=== PATIENT | female | born 1995 | race Caucasian/White ===

== ENCOUNTER 2017-01-31 12:37 | Emergency (ER) | payer BC ==
[~2017-01-31] VITALS: Ht 162.6 cm; Wt 44.5 kg
[2017-01-31 15:28] LABS: BASO % 0.5 % (0.0-1.0); EOS # 0.1 K/mm3 (0.0-0.50); EOS % 1.8 % (0.0-3.0); LARGE UNSTAINED CELL # 0.1 K/mm3 (0.0-0.4); LARGE UNSTAINED CELL % 2.8 % (0.0-4.0); LYMPH # 1.5 K/mm3 (1.5-6.5); LYMPH % 29.5 % (24.0-44.0); MEAN CORPUSCULAR HEMOGLOBIN 30.4 pg (27.0-33.0); MEAN CORPUSCULAR HGB CONC 34.4 g/dl (32.0-36.5); MEAN CORPUSCULAR VOLUME 88.4 fl (80.0-96.0); MONO # 0.2 K/mm3 (0.0-0.8); MONO % 4.6 % (0.0-5.0); NEUTROPHILS # 3.2 K/mm3 (1.8-7.7); NEUTROPHILS % 60.7 % (36.0-66.0); PLATELET COUNT, AUTOMATED 348 k/mm3 (150-450); RED CELL DISTRIBUTION WIDTH 11.8 % (11.5-14.5); WHITE BLOOD COUNT 5.2 K/mm3 (4.0-10.0)
[2017-01-31 16:00] LABS: CONTROL LINE HCG INT CTR LINE PRESENT
[2017-01-31 16:04] LABS: ALBUMIN 4.5 GM/DL (3.2-5.2); ALBUMIN/GLOBULIN RATIO 1.05 (1.00-1.93); ALKALINE PHOSPHATASE 108 U/L (45-117); ALT/SGPT 16 U/L (12-78); ANION GAP 7 MEQ/L (8-16); AST/SGOT 22 U/L (15-37); BILIRUBIN,TOTAL 0.4 MG/DL (0.2-1.0); BLOOD UREA NITROGEN 11 MG/DL (7-18); CARBON DIOXIDE LEVEL 30 MEQ/L (21-32); CHLORIDE LEVEL 103 MEQ/L (98-107); GLUCOSE, FASTING 81 MG/DL (70-105); SODIUM LEVEL 140 MEQ/L (136-145); TOTAL PROTEIN 8.8 GM/DL (6.4-8.2)
[2017-01-31] MEDS ORDERED: ISOVUE-370 76% 100ML VIAL (Q9967) As Ordered ONE (16:24)
[2017-01-31] MEDS ORDERED: CIPR500T89 PO (18:13)
[2017-01-31] MEDS ORDERED: FLUC150T PO (18:14)
[2017-01-31 18:20] VITALS: BP 122/77
[2017-01-31] MEDS ORDERED: CIPROFLOXACIN 500 MG TAB PO ONE (18:30)
--- NOTE | 2017-02-01 09:55 | REP ---
REASON FOR EXAM: Abdominal pain. Contrast: 100 mL of Isovue 370. PRIOR EXAMS: None. The lung bases are clear. The liver, gallbladder, spleen, pancreas, adrenal glands, and kidneys are within normal limits. The abdominal aorta and para-aorta regions are within normal limits. There is no free fluid or free air seen in the abdomen. The bowel loops and their mesenteries are within normal limits. The appendix is well visualized and is unremarkable in appearance. CT PELVIS: There is no mass or adenopathy. There is a trace amount of free fluid, probably physiologic. The bowel loops and their mesenteries are within normal limits. There is a moderate amount of contents in the sigmoid colon and rectal region. Bone window technique throughout the exam shows the osseous structures to be within normal limits. IMPRESSION: No acute intra-abdominal or intrapelvic disease. Signed by Kingston Lala DO 02/01/2017 10:28 A
== END 2017-01-31 18:34 | disposition home or self-care (01) ==
LOC: M ED 14:58
DX: N30.90 Cystitis, unspecified without hematuria (principal)
CPT/HCPCS: 36415; 74177; 80053; 81001; 84703; 85025; 99283; Q9967

== ENCOUNTER → 2017-01-31 | Outpatient (REF) | payer BC, OTHER ==
[~2017-01-31] MED LIST: CIPR500T89 PO; FLUC150T PO
== END ==
LOC: M LAB REF 16:28
PROVIDERS: ATTEND Pediatrics
DX: R10.30 Lower abdominal pain, unspecified (principal)

== ENCOUNTER 2017-12-26 15:50 | Emergency (ER) | payer OTHER, BC ==
[2017-12-26] MEDS: ACETAMINOPHEN TAB 650MG DOSE (2X325MG) PO ×2 (18:08)
== END 2017-12-26 20:38 | disposition home or self-care (01) ==
LOC: M ED 15:50
DX: S13.9XXA Sprain of joints and ligaments of unspecified parts of neck, initial encounter (principal); S06.0X0A Concussion without loss of consciousness, initial encounter; S80.02XA Contusion of left knee, initial encounter; V48.0XXA Car driver injured in noncollision transport accident in nontraffic accident, initial encounter; Y92.9 Unspecified place or not applicable; Y93.9 Activity, unspecified; Z79.899 Other long term (current) drug therapy
CPT/HCPCS: 73564

== ENCOUNTER → 2019-09-03 | Outpatient (CLI) | payer OTHER, SELFPAY ==
[~2019-09-03] MED LIST changes: +CIPR-249 PO; -CIPR500T89 PO
== END ==
LOC: M ADAMS 08:41
PROVIDERS: ATTEND Physician Assistant
DX: N91.1 Secondary amenorrhea (principal)

== ENCOUNTER → 2019-09-28 | Outpatient (CLI) | payer OTHER ==
[2019-09-28 17:02] LABS: GLUCOSE,RANDOM 69 MG/DL (LESS THAN 200)
[2019-09-28 17:18] LABS: HEMATOCRIT 42.7 % (36.0-47.0); HEMOGLOBIN 13.9 g/dl (12.0-15.5); MEAN CORPUSCULAR HEMOGLOBIN 30.7 pg (27.0-33.0); MEAN CORPUSCULAR HGB CONC 32.6 g/dl (32.0-36.5); MEAN CORPUSCULAR VOLUME 94.3 fl (80.0-96.0); PLATELET COUNT, AUTOMATED 324 10^3/uL (150-450); RED BLOOD COUNT 4.53 10^6/uL (4.00-5.40); WHITE BLOOD COUNT 9.2 10^3/uL (4.0-10.0)
[2019-09-28 17:57] LABS: HIV 1&2 SCREEN CENTAUR NEGATIVE (NEGATIVE)
[2019-09-30 08:10] LABS: RUBEOLA IgG ANTIBODY 64.9 AU/mL (Immune >16.4)
[2019-09-30 10:16] LABS: HEPATITIS B SURFACE ANTIGEN NEGATIVE (NEGATIVE)
== END ==
LOC: M LABDRWAD 11:57
PROVIDERS: ATTEND Specialist
DX: Z34.01 Encounter for supervision of normal first pregnancy, first trimester (principal); Z3A.09 9 weeks gestation of pregnancy; N39.0 Urinary tract infection, site not specified

== ENCOUNTER → 2020-01-24 | Outpatient (REF) | payer BC ==
[2020-01-24 15:51] LABS: HEMATOCRIT 40.2 % (36.0-47.0); HEMOGLOBIN 13.4 g/dl (12.0-15.5)
[2020-01-24 16:09] LABS: GLUCOSE CHALLENGE TEST 1 HOUR 80 MG/DL (LESS THAN 140)
[2020-01-24 17:45] LABS: HEMOGLOBIN A1c 4.7 %
[2020-01-25 10:08] LABS: RUBELLA IgG QUALITATIVE IMMUNE (IMMUNE)
== END ==
LOC: M LABDRWAD 15:11
PROVIDERS: ATTEND Midwife
DX: Z34.02 Encounter for supervision of normal first pregnancy, second trimester (principal); Z3A.25 25 weeks gestation of pregnancy

== ENCOUNTER → 2021-07-06 | Outpatient (CLI) | payer BC | LOC: M LAB 08:12 | PROVIDERS: ATTEND Advanced Practice Midwife | DX: N91.1 Secondary amenorrhea (principal) ==

== ENCOUNTER → 2021-08-06 | Outpatient (REF) | payer BC ==
[2021-08-06 19:02] LABS: APPEARANCE, URINE CLEAR (CLEAR); BACTERIA, URINE AUTO NEGATIVE (NEGATIVE); BILIRUBIN, URINE AUTO NEGATIVE (NEGATIVE); BLOOD, URINE BLOOD NEGATIVE (NEGATIVE); COLOR, URINE YELLOW (YELLOW); GLUCOSE, URINE (UA) AUTO NEGATIVE (NEGATIVE); KETONE, URINE AUTO NEGATIVE (NEGATIVE); LEUKOCYTE ESTERASE, URINE AUTO NEGATIVE (NEGATIVE); MUCUS, URINE SMALL (NEGATIVE); NITRITE, URINE AUTO NEGATIVE (NEGATIVE); PROTEIN, URINE AUTO NEGATIVE (NEGATIVE); RBC, URINE AUTO 0 /HPF (0-3); SPECIFIC GRAVITY URINE AUTO 1.019 (1.002-1.035); SQUAMOUS EPITHELIAL CELL UR AU 1 /HPF (0-6); UROBILINOGEN, URINE AUTO 0.2 mg/dL (0.0-2.0); WBC, URINE AUTO 0 /HPF (0-3)
[2021-08-06 19:06] LABS: BASO % 0.4 % (0.0-1.0); EOS # 0.1 10^3/uL (0.0-0.5); EOS % 0.8 % (0.0-3.0); HEMATOCRIT 44.7 % (36.0-47.0); HEMOGLOBIN 14.9 g/dl (12.0-15.5); LYMPH # 1.9 10^3/uL (1.5-5.0); LYMPH % 17.9 % (24.0-44.0); MEAN CORPUSCULAR HEMOGLOBIN 30.7 pg (27.0-33.0); MEAN CORPUSCULAR HGB CONC 33.3 g/dl (32.0-36.5); MONO # 0.6 10^3/uL (0.0-0.8); MONO % 5.8 % (2.0-8.0); NEUTROPHILS # 8.1 10^3/uL (1.5-8.5); NEUTROPHILS % 74.6 % (36.0-66.0); PLATELET COUNT, AUTOMATED 361 10^3/uL (150-450); RED BLOOD COUNT 4.86 10^6/uL (4.00-5.40); WHITE BLOOD COUNT 10.8 10^3/uL (4.0-10.0)
[2021-08-06 22:27] LABS: HIV 1&2 SCREEN CENTAUR NEGATIVE (NEGATIVE)
== END ==
LOC: M LABDRWAD 17:14
PROVIDERS: ATTEND Advanced Practice Midwife
DX: Z34.81 Encounter for supervision of other normal pregnancy, first trimester (principal); Z3A.10 10 weeks gestation of pregnancy

== ENCOUNTER → 2021-08-16 | Outpatient (REF) | payer BC ==
[2021-08-16 20:12] LABS: GLUCOSE,RANDOM 81 MG/DL (LESS THAN 200)
[2021-08-16 21:25] LABS: HEMOGLOBIN A1c 4.8 %
== END ==
LOC: M LABDRWAD 18:50
PROVIDERS: ATTEND Advanced Practice Midwife
DX: Z34.80 Encounter for supervision of other normal pregnancy, unspecified trimester (principal); Z3A.12 12 weeks gestation of pregnancy

== ENCOUNTER → 2021-11-27 | Outpatient (REF) | payer BC ==
[2021-11-27 20:28] LABS: HEMATOCRIT 42.4 % (36.0-47.0); HEMOGLOBIN 13.6 g/dl (12.0-15.5); MEAN CORPUSCULAR HEMOGLOBIN 30.7 pg (27.0-33.0); MEAN CORPUSCULAR HGB CONC 32.1 g/dl (32.0-36.5); MEAN CORPUSCULAR VOLUME 95.7 fl (80.0-96.0); PLATELET COUNT, AUTOMATED 362 10^3/uL (150-450); RED BLOOD COUNT 4.43 10^6/uL (4.00-5.40); WHITE BLOOD COUNT 9.6 10^3/uL (4.0-10.0)
== END ==
LOC: M LABDRWAD 12:29
PROVIDERS: ATTEND Midwife
DX: O24.419 Gestational diabetes mellitus in pregnancy, unspecified control (principal); Z3A.26 26 weeks gestation of pregnancy

== ENCOUNTER → 2024-07-02 | Outpatient (CLI) | payer OTHER ==
[~2024-07-02] MED LIST changes: -FLUC150T PO; +FLUC150T9 PO
[2024-07-02 09:37] LABS: HEMATOCRIT 41.9 % (36.0-47.0); HEMOGLOBIN 14.3 g/dl (12.0-15.5); MEAN CORPUSCULAR HEMOGLOBIN 30.8 pg (27.0-33.0); MEAN CORPUSCULAR HGB CONC 34.1 g/dl (32.0-36.5); MEAN CORPUSCULAR VOLUME 90.3 fl (80.0-96.0); PLATELET COUNT, AUTOMATED 322 10^3/uL (150-450); RED BLOOD COUNT 4.64 10^6/uL (4.00-5.40); WHITE BLOOD COUNT 8.9 10^3/uL (4.0-10.0)
[2024-07-02 09:54] LABS: AMORPHOUS SEDIMENT SMALL (NEGATIVE); APPEARANCE, URINE CLOUDY (CLEAR); BACTERIA, URINE AUTO NEGATIVE (NEGATIVE); BILIRUBIN, URINE AUTO NEGATIVE (NEGATIVE); BLOOD, URINE BLOOD NEGATIVE (NEGATIVE); COLOR, URINE AMBER (YELLOW); GLUCOSE, URINE (UA) AUTO NEGATIVE (NEGATIVE); KETONE, URINE AUTO NEGATIVE (NEGATIVE); LEUKOCYTE ESTERASE, URINE AUTO NEGATIVE (NEGATIVE); NITRITE, URINE AUTO NEGATIVE (NEGATIVE); PROTEIN, URINE AUTO NEGATIVE (NEGATIVE); RBC, URINE AUTO 0 /HPF (0-3); SPECIFIC GRAVITY URINE AUTO 1.018 (1.002-1.035); SQUAMOUS EPITHELIAL CELL UR AU 5 /HPF (0-6); UROBILINOGEN, URINE AUTO 0.2 mg/dL (0.0-2.0); WBC, URINE AUTO 1 /HPF (0-3)
[2024-07-02 10:28] LABS: HEPATITIS B SURFACE ANTIGEN NEGATIVE (NEGATIVE)
[2024-07-02 10:41] LABS: HIV 1&2 SCREEN NEGATIVE (NEGATIVE)
== END ==
LOC: M LAB 08:23
PROVIDERS: ATTEND Nurse Practitioner Women's Health
DX: Z34.91 Encounter for supervision of normal pregnancy, unspecified, first trimester (principal); Z3A.00 Weeks of gestation of pregnancy not specified

== ENCOUNTER → 2024-09-05 | Outpatient (CLI) | payer OTHER | LOC: M WHC 08:41 | PROVIDERS: ATTEND Nurse Practitioner Women's Health | DX: Z34.92 Encounter for supervision of normal pregnancy, unspecified, second trimester (principal); Z3A.20 20 weeks gestation of pregnancy ==

== ENCOUNTER → 2024-09-07 | Outpatient (CLI) | payer OTHER | LOC: M PLALAB 10:26 | PROVIDERS: ATTEND Nurse Practitioner Women's Health | DX: Z34.92 Encounter for supervision of normal pregnancy, unspecified, second trimester (principal); Z3A.00 Weeks of gestation of pregnancy not specified ==

== ENCOUNTER → 2024-09-19 | Outpatient (CLI) | payer OTHER | LOC: M RAD 16:14 | PROVIDERS: ATTEND Nurse Practitioner Women's Health | DX: Z34.82 Encounter for supervision of other normal pregnancy, second trimester (principal); Z3A.22 22 weeks gestation of pregnancy ==

== ENCOUNTER → 2024-11-03 | Outpatient (CLI) | payer OTHER | LOC: M WHC 09:07 | PROVIDERS: ATTEND Nurse Practitioner Women's Health | DX: Z34.82 Encounter for supervision of other normal pregnancy, second trimester (principal) ==

== ENCOUNTER 2025-01-22 08:22 | Emergency (ER) | payer OTHER ==
[~2025-01-22] VITALS: Ht 162.6 cm; Wt 52.2 kg
[2025-01-22] MEDS: ACETAMINOPHEN *IV* 1,000 MG in IV 1 EA IV ONE (12:03)
[2025-01-22] MEDS: NS (Normal Saline) 0.9% 1,000 ML IV ONE (12:04)
[2025-01-22 12:17] LABS: BASO % 0.5 % (0.0-1.0); EOS # 0.2 10^3/uL (0.0-0.5); HEMATOCRIT 42.9 % (36.0-47.0); HEMOGLOBIN 14.2 g/dl (12.0-15.5); LYMPH # 1.6 10^3/uL (1.5-5.0); LYMPH % 18.3 % (24.0-44.0); MEAN CORPUSCULAR HEMOGLOBIN 30.7 pg (27.0-33.0); MEAN CORPUSCULAR HGB CONC 33.1 g/dl (32.0-36.5); MEAN CORPUSCULAR VOLUME 92.7 fl (80.0-96.0); MONO # 0.4 10^3/uL (0.0-0.8); NEUTROPHILS # 6.4 10^3/uL (1.5-8.5); NEUTROPHILS % 73.9 % (36.0-66.0); PLATELET COUNT, AUTOMATED 377 10^3/uL (150-450); RED BLOOD COUNT 4.63 10^6/uL (4.00-5.40); WHITE BLOOD COUNT 8.6 10^3/uL (4.0-10.0)
[2025-01-22 12:30] VITALS: TEMP 97.8
[2025-01-22 12:38] LABS: CK-MB VALUE MASS < 1.0 NG/ML (<3.6)
[2025-01-22 12:40] LABS: BLOOD UREA NITROGEN 9 MG/DL (9-23); CALCIUM LEVEL 8.9 MG/DL (8.5-10.1); CARBON DIOXIDE LEVEL 24 MMOL/L (20-31); CHLORIDE LEVEL 109 MMOL/L (98-107); CREATININE FOR GFR 0.46 MG/DL (0.55-1.30); GLOMERULAR FILTRATION RATE > 60.0 (>60); GLUCOSE, FASTING 70 MG/DL (60-100); POTASSIUM SERUM 4.3 MMOL/L (3.5-5.1); SODIUM LEVEL 143 MMOL/L (136-145)
[2025-01-22 12:43] LABS: CPK CREATINE PHOSPHOKINASE 36 U/L (34-145); MB/CK RELATIVE INDEX 2.77 (< OR =4)
[2025-01-22 13:52] VITALS: BP 114/76; O2SAT 100
[2025-01-22] MEDS ORDERED: ISOVUE-370 76% 100ML VIAL As Ordered ONE (13:56)
[2025-01-22] MEDS ORDERED: ACET500P3 PO (18:00)
== END 2025-01-22 17:31 | disposition admitted as inpatient to this hospital (09) ==
LOC: M ED 08:22
DX: R51.9 Headache, unspecified (principal); I45.10 Unspecified right bundle-branch block; Z79.1 Long term (current) use of non-steroidal anti-inflammatories (NSAID)
CPT/HCPCS: 70450; 71275; 80048; 82550; 82553; 84484; 85025; 85379; 93005; 93041; 94760; 96365; 99284; J0131; Q9967

== ENCOUNTER 2025-01-22 17:51 | Outpatient (CLI) | payer OTHER ==
[~2025-01-22] VITALS: Ht 162.6 cm; Wt 52.2 kg
[2025-01-22] MEDS ORDERED: HOME MED LIST COMPLETE! XX SCH (18:00)
[2025-01-22] MEDS ORDERED: ACET500P3 PO (18:00)
[2025-01-22 18:15] VITALS: BP 131/92
[2025-01-22] MEDS: IBUPROFEN 800 MG TAB PO ONE (18:16)
[2025-01-22 18:37] LABS: ALT/SGPT 16 U/L (7.0-40); AST/SGOT 26 U/L (<34); BILIRUBIN,TOTAL 0.4 MG/DL (0.3-1.2); CREATININE FOR GFR 0.47 MG/DL (0.55-1.30); GLOMERULAR FILTRATION RATE > 60.0 (>60); LDH LACTATE DEHYDROGENASE 245 U/L (120-246)
[2025-01-22 18:44] LABS: CREATININE,RANDOM URINE 46.6 MG/DL
[2025-01-22 18:48] LABS: URIC ACID 6.7 MG/DL (3.1-7.8)
[2025-01-22 18:48] LABS: TOTAL PROTEIN,RANDOM URINE < 6.0 MG/DL (0.0-14.0)
== END 2025-01-22 19:00 | disposition home or self-care (01) ==
LOC: M LDO 17:51
PROVIDERS: ATTEND Obstetrics & Gynecology
DX: O13.5 Gestational [pregnancy-induced] hypertension without significant proteinuria, complicating the puerperium (principal); R51.0 Headache with orthostatic component, not elsewhere classified